=== PATIENT | female | born 1970 | race Caucasian/White ===

== ENCOUNTER → 2018-02-24 | Outpatient (CLI) | payer OTHER | END | disposition home or self-care (01) | LOC: LAB 12:53 → LAB SHORT 12:53 | DX: J32.9 Chronic sinusitis, unspecified (principal) | CPT/HCPCS: 87070; 87077; 87147; 87186; 87205 ==

== ENCOUNTER 2018-11-20 10:37 | Day surgery (SDC) | payer OTHER ==
[~2018-11-20] VITALS: Ht 160 cm; Wt 57.7 kg
[~2018-11-20 10:37] MED LIST: CYCLAFEM1 EAC1 PO; DULO30 PO
== END 2018-11-20 12:36 | disposition home or self-care (01) ==
LOC: ORSCSDS 10:37
PROVIDERS: Internal Medicine Gastroenterology
PROC: 0DJD8ZZ Inspection of Lower Intestinal Tract, Via Natural or Artificial Opening Endoscopic (ICD-10-PCS; principal; 2018-11-20 12:00)
DX: Z12.11 Encounter for screening for malignant neoplasm of colon (principal); K64.8 Other hemorrhoids; F32.9 Major depressive disorder, single episode, unspecified; Z79.899 Other long term (current) drug therapy
CPT/HCPCS: J2704; J7120

== ENCOUNTER → 2018-11-27 | Outpatient (CLI) | payer OTHER | END | disposition home or self-care (01) | LOC: PLD 09:49 → LAB SHORT 09:49 | DX: D22.5 Melanocytic nevi of trunk (principal) | CPT/HCPCS: 88305 ==

== ENCOUNTER → 2020-02-16 | Outpatient (CLI) | payer OTHER | END | disposition home or self-care (01) | LOC: LAB SHORT 16:16 → LAB EV 16:16 | DX: N39.0 Urinary tract infection, site not specified (principal) | CPT/HCPCS: 87086 ==

== ENCOUNTER → 2020-08-22 | Outpatient (CLI) | payer OTHER | END | disposition home or self-care (01) | LOC: LAB 08:35 → LAB SHORT 08:35 | DX: N39.0 Urinary tract infection, site not specified (principal) | CPT/HCPCS: 87077; 87086; 87186 ==

== ENCOUNTER → 2021-08-25 | Outpatient (CLI) | payer OTHER ==
[~2021-08-25] MED LIST changes: +ABILIFY MYCITE5 M2 PO; +PROG100 PO; +VITAMIN D5000 UNIT PO
== END | disposition home or self-care (01) ==
LOC: LAB SHORT 17:32 → LAB 17:32
DX: R35.0 Frequency of micturition (principal)
CPT/HCPCS: 87086

== ENCOUNTER → 2023-08-18 | Outpatient (CLI) | payer OTHER | LOC: LAB SHORT 12:56 → LAB 12:56 | DX: R30.0 Dysuria (principal); R68.83 Chills (without fever) | CPT/HCPCS: 84443; 87077; 87086; 87186 ==